=== PATIENT | female | born 2000 ===

== ENCOUNTER 2024-08-07 17:29 | Inpatient (IN) | payer BC ==
[2024-08-07 18:07] LABS: BASOPHILS PERCENT AUTO 0.3 % (0.0-1.0); EOSINOPHILS PERCENT AUTO 0.1 % (0.0-6.0); HEMATOCRIT 43.4 % (37.0-47.0); HEMOGLOBIN 14.9 gm/dl (12.0-16.0); IMMATURE GRAN ABSOLUTE AUTO 0.06 K/mm3 (0.00-0.05); IMMATURE GRAN PERCENT AUTO 0.4 % (0.0-0.4); LYMPHOCYTES ABSOLUTE AUTO 0.8 K/mm3 (1.0-4.8); LYMPHOCYTES PERCENT AUTO 5.4 % (24.0-44.0); MEAN CORPUSCULAR HEMOGLOBIN 29.7 pg (28.0-32.0); MEAN CORPUSCULAR HGB CONC 34.3 g/dl (32.0-36.0); MEAN CORPUSCULAR VOLUME 86.5 fl (83.0-99.0); MEAN PLATELET VOLUME 9.5 fl (9.4-12.3); MONOCYTES ABSOLUTE AUTO 0.9 K/mm3 (0.0-0.8); MONOCYTES PERCENT AUTO 5.8 % (0.0-8.0); NEUTROPHILS ABSOLUTE AUTO 13.4 K/mm3 (1.8-7.7); PLATELET COUNT,PLT 275 K/mm3 (150-400); RED BLOOD CELL COUNT 5.02 M/mm3 (4.10-5.30); WHITE BLOOD CELL COUNT,WBC 15.26 K/mm3 (3.9-11.3)
[2024-08-07] MEDS: Sodium Chloride 0.9% 1,000 ML IV ONE (18:12)
[2024-08-07] MEDS: Metoclopramide 10 MG/2 ML SDV IVPUSH ONE (18:38)
[2024-08-07 18:56] LABS: A/G RATIO 0.6 (1-2); ANION GAP 16.4 (5-15); BILIRUBIN TOTAL 1.3 mg/dL (0.2-1.0); CALCIUM 9.3 mg/dL (8.5-10.1); EST CRCL DRUG DOSING (CG) 96.12 mL/min; POTASSIUM,K 3.4 mEq/L (3.5-5.1)
[2024-08-07 19:07] LABS: C-REACTIVE PROTEIN 23.45 mg/dL (<0.30)
[2024-08-07] MEDS ORDERED: Naloxone 0.4 MG/ML SDV IVPUSH PRN (19:11)
[2024-08-07] MEDS: fentaNYL 100 MCG/2 ML SDV IVPUSH ONE (19:31)
[2024-08-07] MEDS ORDERED: Propofol 200 MG/20 ML SDV ONE ×2 (19:36→20:57)
[2024-08-07] MEDS ORDERED: fentaNYL 250 MCG/5 ML SDV ONE (19:36)
[2024-08-07] MEDS ORDERED: Midazolam 1 MG/ML 2 ML SDV ONE (19:36)
[2024-08-07] MEDS ORDERED: Sugammadex Sodium 200 MG/2 ML VIAL IV ONE ×2 (19:37→21:08)
[2024-08-07] MEDS ORDERED: dexmedeTOMIDine HCl 200 MCG/2 ML SDV ONE (19:37)
[2024-08-07] MEDS ORDERED: Dexamethasone 4 MG/ML 5 ML MDV ONE (19:37)
[2024-08-07] MEDS ORDERED: Rocuronium 50 MG/5 ML Vial ONE ×2 (19:37→20:22)
[2024-08-07] MEDS ORDERED: Ketorolac 30 MG/ML SDV ONE (19:37)
[2024-08-07] MEDS ORDERED: Glycopyrrolate 0.2 MG/ML 2 ML SDV ONE (19:37)
[2024-08-07] MEDS ORDERED: Lidocaine 2% 5 ML SDV ONE (19:37)
[2024-08-07] MEDS: Iopamidol 612 MG/ML 100 ML Bottle IVPUSH ONE (19:39)
[2024-08-07] MEDS ORDERED: Sodium Chloride 0.9% 100 ML ONE ×2 (20:07→20:08)
[2024-08-07] MEDS ORDERED: Phenylephrine 1% 10 MG/ML SDV ONE (20:08)
[2024-08-07] MEDS: Piperacillin/Tazobactam 4.5 GM in Sodium Chloride 0.9% 100 ML IV ONE (20:22)
[2024-08-07] MEDS ORDERED: Esmolol 100 MG/10 ML SDV ONE (20:31)
[2024-08-07] MEDS ORDERED: Ondansetron 4 MG/2 ML SDV ONE (20:53)
[2024-08-07] MEDS ORDERED: Lactated Ringers 1,000 ML IV ONE ×2 (21:00→22:00)
[2024-08-07] MEDS ORDERED: HYDROmorphone 0.5 MG/0.5 ML Syringe ONE (21:13)
[2024-08-07] MEDS ORDERED: Ondansetron 4 MG/2 ML SDV IVPUSH PRN (21:31)
[2024-08-07] MEDS ORDERED: fentaNYL 100 MCG/2 ML SDV IVPUSH PRN (21:31)
[2024-08-07] MEDS ORDERED: HYDROmorphone 0.5 MG/0.5 ML Syringe IVPUSH PRN (21:31)
[2024-08-07] MEDS ORDERED: Sodium Chloride 0.9% 10 ML Syringe FLUSH PRN (21:31)
[2024-08-07] MEDS: EPINEPHrine 1 MG/ML SDV ONE (21:41)
[2024-08-07] MEDS: Bupivacaine 0.5% 30 ML SDV ONE (21:41)
[2024-08-07] MEDS: Lidocaine 1% 30 ML SDV ONE (21:41)
[2024-08-07] MEDS ORDERED: Lactated Ringers 1,000 ML IV SCH (21:45)
[2024-08-07] MEDS ORDERED: oxyCODONE 5 MG Tab PO PRN (22:39)
[2024-08-07] MEDS: Ibuprofen 600 MG Tab PO SCH (23:17)
[2024-08-07] MEDS: Ondansetron 4 MG Tab.DIS PO SCH (23:36)
[2024-08-07] MEDS: Heparin Sodium 5,000 Units/ML Vial SUBCUT SCH (23:36)
[2024-08-07] MEDS: Acetaminophen 325 MG Tab PO SCH (23:41)
[2024-08-08] MEDS: Dextrose 5%-0.45% NaCl 1,000 ML IV SCH (01:18)
[2024-08-08] MEDS: Piperacillin/Tazobactam 4.5 GM in Sodium Chloride 0.9% 100 ML IV SCH (03:55)
[2024-08-08 04:25] LABS: BASOPHILS PERCENT AUTO 0.2 % (0.0-1.0); EOSINOPHILS ABSOLUTE AUTO 0.1 K/mm3 (0.0-0.4); EOSINOPHILS PERCENT AUTO 0.4 % (0.0-6.0); HEMATOCRIT 38.6 % (37.0-47.0); IMMATURE GRAN ABSOLUTE AUTO 0.19 K/mm3 (0.00-0.05); LYMPHOCYTES ABSOLUTE AUTO 0.6 K/mm3 (1.0-4.8); LYMPHOCYTES PERCENT AUTO 3.2 % (24.0-44.0); MEAN CORPUSCULAR HEMOGLOBIN 29.6 pg (28.0-32.0); MEAN CORPUSCULAR HGB CONC 33.7 g/dl (32.0-36.0); MEAN CORPUSCULAR VOLUME 87.9 fl (83.0-99.0); MEAN PLATELET VOLUME 9.5 fl (9.4-12.3); MONOCYTES ABSOLUTE AUTO 0.6 K/mm3 (0.0-0.8); NEUTROPHILS ABSOLUTE AUTO 17.2 K/mm3 (1.8-7.7); NEUTROPHILS PERCENT AUTO 92.2 % (41.0-71.0); PLATELET COUNT,PLT 256 K/mm3 (150-400); RED BLOOD CELL COUNT 4.39 M/mm3 (4.10-5.30)
[2024-08-08 04:53] LABS: BUN/CREATININE RATIO 6.7 (14-18); CALCIUM 8.3 mg/dL (8.5-10.1); CREATININE 1.2 mg/dL (0.55-1.02); EST CRCL DRUG DOSING (CG) 80.1 mL/min; POTASSIUM,K 3.7 mEq/L (3.5-5.1)
[2024-08-08 05:23] LABS: ANION GAP 14.7 (5-15)
[2024-08-08 05:43] LABS: SLIDE REVIEW ABNORMAL SMEAR
[2024-08-08] MEDS: Heparin Sodium 5,000 Units/ML Vial SUBCUT SCH (08:32)
[2024-08-08] MEDS: Sodium Chloride 0.9% 10 ML Syringe FLUSH SCH (09:10)
[2024-08-09 05:46] LABS: BASOPHILS PERCENT AUTO 0.2 % (0.0-1.0); BUN/CREATININE RATIO 8.8 (14-18); CALCIUM 8.4 mg/dL (8.5-10.1); CREATININE 0.8 mg/dL (0.55-1.02); EOSINOPHILS ABSOLUTE AUTO 0.1 K/mm3 (0.0-0.4); EOSINOPHILS PERCENT AUTO 0.7 % (0.0-6.0); EST CRCL DRUG DOSING (CG) 120.15 mL/min; HEMATOCRIT 35.4 % (37.0-47.0); HEMOGLOBIN 12.1 gm/dl (12.0-16.0); IMMATURE GRAN ABSOLUTE AUTO 0.23 K/mm3 (0.00-0.05); IMMATURE GRAN PERCENT AUTO 1.5 % (0.0-0.4); LYMPHOCYTES ABSOLUTE AUTO 0.9 K/mm3 (1.0-4.8); LYMPHOCYTES PERCENT AUTO 5.9 % (24.0-44.0); MEAN CORPUSCULAR HEMOGLOBIN 29.8 pg (28.0-32.0); MEAN CORPUSCULAR HGB CONC 34.2 g/dl (32.0-36.0); MEAN CORPUSCULAR VOLUME 87.2 fl (83.0-99.0); MEAN PLATELET VOLUME 10.1 fl (9.4-12.3); MONOCYTES ABSOLUTE AUTO 0.6 K/mm3 (0.0-0.8); MONOCYTES PERCENT AUTO 4.1 % (0.0-8.0); NEUTROPHILS ABSOLUTE AUTO 13.3 K/mm3 (1.8-7.7); NEUTROPHILS PERCENT AUTO 87.6 % (41.0-71.0); PLATELET COUNT,PLT 278 K/mm3 (150-400); RED BLOOD CELL COUNT 4.06 M/mm3 (4.10-5.30); WHITE BLOOD CELL COUNT,WBC 15.16 K/mm3 (3.9-11.3)
[2024-08-09] MEDS: Potassium Chloride 20 MEQ Tab.ER PO ONE ×2 (08:25→13:23)
[2024-08-09 12:35] LABS: ANION GAP 8.3 (5-15); BUN/CREATININE RATIO 5.6 (14-18); CALCIUM 8.2 mg/dL (8.5-10.1); CREATININE 0.9 mg/dL (0.55-1.02); EST CRCL DRUG DOSING (CG) 106.8 mL/min; POTASSIUM,K 3.3 mEq/L (3.5-5.1)
[2024-08-09] MEDS ORDERED: Piperacillin/Tazobactam 4.5 GM in Sodium Chloride 0.9% 100 ML IV SCH (14:00)
== END 2024-08-09 14:07 | disposition home or self-care (01) | DRG 233 ==
LOC: JD.ED 17:29 → JD.SDS 20:54 → JD.MS 22:39 → OBSVTOIN 08-08 18:04
PROVIDERS: ADMIT Surgery; ATTEND Surgery
PROC: 0DTJ4ZZ Resection of Appendix, Percutaneous Endoscopic Approach (ICD-10-PCS; principal; 2024-08-07 21:30)
DX: K35.32 Acute appendicitis with perforation, localized peritonitis, and gangrene, without abscess (principal); E87.6 Hypokalemia; Z79.899 Other long term (current) drug therapy
CPT/HCPCS: 00840; 36415; 74177; 74177-26; 80048; 80053; 83690; 84703; 85025; 86140; 94760; 96361; 96365; 96366; 96372; 96375; 99140; 99285; 99285-25; A9270-GY; G0378; J0171; J0665; J1100; J1644; J1885; J2003; J2250; J2371; J2405; J2543; J2704; J2765; J3010; J3490; J7030; J7120; J7799; Q9967